=== PATIENT | male | born 1950 | race Caucasian/White ===

== ENCOUNTER 2018-08-18 23:30 | Emergency (ER) | payer MEDICARE, BC ==
[~2018-08-18] VITALS: Ht 177.8 cm; Wt 96.2 kg
[~2018-08-18 23:30] MED LIST: ALEN70; AMLO5; CALCIUM; CALCIUM PO; CLOT10 PO; FLEC50 PO; GLIM4; INSDET100 SQ; INSUASPI SC; LEVAMIR; LEVEMIR; MAGCHL64ER PO; TACR1; TACR1 PO; VALA500; VALA500 PO; VALS80; VALS80 PO; ZOLP10 PO; [UNRECOGNIZED DRUG - OTHER]
[2018-08-19] MEDS ORDERED: LOSA50 PO (00:02)
[2018-08-19] MEDS ORDERED: [UNRECOGNIZED DRUG - OTHER] (00:04)
[2018-08-19 00:34] LABS: BASOPHILS ABSOLUTE AUTO 0.03 K/mm3 (0.00-0.23); BASOPHILS PERCENT AUTO 0 % (0-2); EOSINOPHILS ABSOLUTE AUTO 0.28 K/mm3 (0.00-0.68); EOSINOPHILS PERCENT AUTO 4 % (0-6); Hematocrit 40.3 % (37.0-53.0); Hemoglobin 13.6 g/dL (13.5-17.5); IMMATURE GRAN ABSOLUTE AUTO 0.01 K/mm3 (0.00-0.10); IMMATURE GRAN PERCENT AUTO 0 % (0-1); LYMPHOCYTES ABSOLUTE AUTO 3.13 K/mm3 (0.84-5.20); LYMPHOCYTES PERCENT AUTO 40 % (21-46); MONOCYTES ABSOLUTE AUTO 0.65 K/mm3 (0.16-1.47); MONOCYTES PERCENT AUTO 8 % (4-13); Mean Corpuscular HGB 29.8 pg (26.0-34.0); Mean Corpuscular HGB Conc 33.7 g/dL (31.5-36.5); Mean Corpuscular Volume 88 fL (80-100); Mean Platelet Volume 9.8 fL (9.1-12.4); NEUTROPHILS ABSOLUTE AUTO 3.73 K/mm3 (1.96-9.15); NEUTROPHILS PERCENT AUTO 48 % (41-73); Platelet Count 174 K/mm3 (150-400); RDW Coefficient Variation 15.4 % (11.7-14.2); Red Blood Cell Count 4.56 M/mm3 (4.30-5.90); White Blood Cell Count 7.83 K/mm3 (4.00-11.30)
[2018-08-19 00:48] LABS: Alanine Aminotransfer (ALT/SGP 25 U/L (12-78); Albumin, Blood 3.5 g/dL (3.4-5.0); Albumin/Globulin Ratio 0.9 (0.8-1.8); Alk Phos 113 U/L (50-136); Anion Gap 7 mmol/L (6-16); Aspartate Aminotrans (AST/SGOT 18 U/L (12-37); Bilirubin, Total 0.2 mg/dL (0.1-1.0); Blood Urea Nitrogen 41 mg/dL (8-24); Bun/Creatinine Ratio 23.6 (12.0-20.0); CO2, Blood 22 mmol/L (21-32); Calcium, Blood 8.3 mg/dL (8.5-10.1); Chloride, Blood 111 mmol/L (98-108); Creatinine, Blood 1.74 mg/dL (0.60-1.20); Globulin, Blood 3.8 g/dL (2.2-4.0); Glomerular Filtration Rate 41 (60-); Glucose, Blood 282 mg/dL (70-99); Magnesium, Blood 1.7 mg/dL (1.6-2.4); Potassium, Blood 4.7 mmol/L (3.5-5.5); Sodium, Blood 140 mmol/L (136-145); Total Protein, Blood 7.3 g/dL (6.4-8.2); Troponin I <0.015 ng/mL (0.000-0.040)
== END 2018-08-19 01:49 | disposition home or self-care (01) ==
LOC: ER 23:30
PROVIDERS: Emergency Medicine
DX: I48.0 Paroxysmal atrial fibrillation (principal); Z79.899 Other long term (current) drug therapy; Z79.4 Long term (current) use of insulin; E11.9 Type 2 diabetes mellitus without complications
CPT/HCPCS: 36415; 80053; 83735; 84484; 85025; 93005; 93010; 96360; 99285-25; J7030

== ENCOUNTER 2018-12-27 13:49 | Day surgery (SDC) | payer MEDICARE, BC ==
[~2018-12-27 13:49] MED LIST changes: +LOSA50 PO; +[UNRECOGNIZED DRUG - OTHER]
== END 2018-12-27 23:03 | disposition home or self-care (01) ==
LOC: RAD 13:49
DX: M06.4 Inflammatory polyarthropathy (principal)
CPT/HCPCS: 20611; 76942

== ENCOUNTER → 2022-04-10 | Outpatient (CLI) | payer MEDICARE, BC ==
[~2022-04-10] MED LIST changes: +ALLO300 PO; +DILTIAZEM HCL120 MG PO; +ELIQUIS5 MG PO; +NOVOLOG FL100 UNIT/2; +Vitamin D2000 UNIT PO
== END | disposition home or self-care (01) ==
LOC: PLD 07:45 → LAB SHORT 07:45
DX: C44.519 Basal cell carcinoma of skin of other part of trunk (principal)
CPT/HCPCS: 88305

== ENCOUNTER 2022-06-27 09:37 | Day surgery (SDC) | payer MEDICARE, BC ==
[~2022-06-27] VITALS: Ht 177.8 cm; Wt 98.8 kg
[2022-06-27 12:22] VITALS: BP 110/69
== END 2022-06-27 12:23 | disposition home or self-care (01) ==
LOC: ORSCSDS 09:37
PROVIDERS: Surgery
PROC: 0DBL8ZX Excision of Transverse Colon, Via Natural or Artificial Opening Endoscopic, Diagnostic (ICD-10-PCS; principal; 2022-06-27 11:00)
DX: Z12.11 Encounter for screening for malignant neoplasm of colon (principal); D12.3 Benign neoplasm of transverse colon; I48.0 Paroxysmal atrial fibrillation; K57.30 Diverticulosis of large intestine without perforation or abscess without bleeding; K64.8 Other hemorrhoids; I12.9 Hypertensive chronic kidney disease with stage 1 through stage 4 chronic kidney disease, or unspecified chronic kidney disease; E11.22 Type 2 diabetes mellitus with diabetic chronic kidney disease; N18.9 Chronic kidney disease, unspecified; K21.9 Gastro-esophageal reflux disease without esophagitis; Z87.891 Personal history of nicotine dependence; Z79.4 Long term (current) use of insulin; Z79.01 Long term (current) use of anticoagulants; Z79.899 Other long term (current) drug therapy
CPT/HCPCS: 82947; J0330; J0461; J2405; J2704; J7120; Q9968

== ENCOUNTER 2024-04-17 00:38 | Day surgery (SDC) | payer MEDICARE, BC ==
[2024-04-17] MEDS ORDERED: Remdesivir (EUA) 200 MG in NS 250 ML IV SCH (06:00)
[2024-04-17 16:07] VITALS: BP 161/68
[2024-04-17] MEDS ORDERED: ISOMON20 PO (16:18)
[2024-04-17] MEDS ORDERED: LYUMJEV100 UNIT/1 SC (16:19)
[2024-04-17] MEDS ORDERED: OMEP20ER PO (16:20)
[2024-04-17 17:09] VITALS: BP 129/59
[2024-04-17 17:56] VITALS: BP 126/65
== END 2024-04-17 17:58 | disposition home or self-care (01) ==
LOC: ATC 00:38
DX: U07.1 COVID-19 (principal); D84.9 Immunodeficiency, unspecified; I25.10 Atherosclerotic heart disease of native coronary artery without angina pectoris; I12.9 Hypertensive chronic kidney disease with stage 1 through stage 4 chronic kidney disease, or unspecified chronic kidney disease; E11.22 Type 2 diabetes mellitus with diabetic chronic kidney disease; N18.9 Chronic kidney disease, unspecified; I48.91 Unspecified atrial fibrillation; Z79.01 Long term (current) use of anticoagulants; Z79.4 Long term (current) use of insulin; Z79.621 Long term (current) use of calcineurin inhibitor; Z79.899 Other long term (current) drug therapy; Z88.1 Allergy status to other antibiotic agents; Z88.8 Allergy status to other drugs, medicaments and biological substances; Z94.4 Liver transplant status; Z96.41 Presence of insulin pump (external) (internal)
CPT/HCPCS: 96365; J0248; J7050

== ENCOUNTER 2024-04-18 02:43 | Day surgery (SDC) | payer MEDICARE, BC ==
[~2024-04-18 02:43] MED LIST changes: +ISOMON20 PO; +LYUMJEV100 UNIT/1 SC; +OMEP20ER PO
[2024-04-18] MEDS ORDERED: Remdesivir (EUA) 100 MG in NS 250 ML IV SCH (08:30)
[2024-04-18 16:05] VITALS: BP 133/57
[2024-04-18 16:50] VITALS: BP 127/63
== END 2024-04-18 17:15 | disposition home or self-care (01) ==
LOC: ATC 02:43
DX: U07.1 COVID-19 (principal); I25.10 Atherosclerotic heart disease of native coronary artery without angina pectoris; I48.91 Unspecified atrial fibrillation; E11.22 Type 2 diabetes mellitus with diabetic chronic kidney disease; I12.9 Hypertensive chronic kidney disease with stage 1 through stage 4 chronic kidney disease, or unspecified chronic kidney disease; N18.9 Chronic kidney disease, unspecified; Z94.4 Liver transplant status; Z79.899 Other long term (current) drug therapy; D84.9 Immunodeficiency, unspecified
CPT/HCPCS: J0248; J7050

== ENCOUNTER 2024-09-03 18:30 | Emergency (ER) | payer MEDICARE, BC ==
[~2024-09-03] VITALS: Ht 177.8 cm; Wt 93.0 kg
[2024-09-03 18:55] VITALS: BP 160/78
[2024-09-03] MEDS ORDERED: AMOCLA875 PO (20:57)
[2024-09-03] MEDS ORDERED: OXAYDO5 M1 PO (20:57)
== END 2024-09-03 21:25 | disposition home or self-care (01) ==
LOC: ER 18:30
DX: S61.412A Laceration without foreign body of left hand, initial encounter (principal); W29.8XXA Contact with other powered hand tools and household machinery, initial encounter; E11.9 Type 2 diabetes mellitus without complications; Z88.1 Allergy status to other antibiotic agents; Z91.048 Other nonmedicinal substance allergy status
CPT/HCPCS: 12002; 99282-25; A9270